=== PATIENT | female | born 1960 | race Caucasian/White ===

== ENCOUNTER 2017-09-06 14:14 | Observation (INO) ==
--- NOTE | 2017-09-06 14:42 | Emergency Department Note ---
Disposition Clinical Impression: Atrial fibrillation with RVR Disposition: Admitted As Inpatient Condition: Fair Referrals: Biju Chang MD [Primary Care Provider] - Forms: ED Satisfaction Letter Time of Disposition: 16:32 Arrhythmia/Palpitations HPI - General Chief Complaint: ED Arrhythmia/Palpitations Stated Complaint: Afib new Source: patient Mode of arrival: ambulatory Limitations: no limitations Nursing Notes Reviewed: Yes Vital Signs Reviewed: Yes - History of Present Illness HPI Narrative: 56-year-old female who has a remote history of breast cancer last treated 2010 this had problems with asthmatic bronchitis sinusitis for the last couple months. She was in the process of being evaluated by pulmonology went in for an office visit today was found to be in A. fib with RVR. Patient does not have any history of previous arrhythmia. States she has not had treatment of her breast cancer for several years. She states she did have a blood clot at the tip of her previous port but no DVTs or PEs. She said she had an echo done when she was getting chemotherapy several years ago but none recently. 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 Duration: constant Severity: moderate Context: occurred during rest Arrhythmia History: other (Chest pressure) Associated symptoms: Reports: chest pain, shortness of breath - Related Data Home Medications Medication Instructions Recorded Confirmed Anastrozole [Arimidex] 1 mg PO DAILY 09/02/16 09/02/16 Calcium Carb/Vitamin D3/Vit K1 1 each PO DAILY 09/02/16 09/02/16 [Calcium + D Soft Chewable Tab] Cholecalciferol (Vitamin D3) 2,000 unit PO DAILY 09/02/16 09/02/16 [Vitamin D3] Fluticasone Propionate Nasal 50 mcg NS DAILY 09/02/16 09/02/16 [Flonase] Furosemide [Lasix] 40 mg PO DAILY 09/02/16 09/02/16 Krill/[place]-3/Dha/Epa/Lipids 1 each PO DAILY 09/02/16 09/02/16 [Krill Oil 300 mg Softgel] Montelukast [Singulair] 10 mg PO DAILY 09/02/16 09/02/16 Omeprazole 20 mg PO DAILY 09/02/16 09/02/16 Potassium Chloride [Klor-Con 10 meq PO DAILY 09/02/16 09/02/16 Sprinkle] Valsartan [Diovan] 80 mg PO DAILY 09/02/16 09/02/16 Previous Rx's Medication Instructions Recorded Clindamycin [Cleocin] 300 mg PO Q8H #30 capsule 09/04/16 Lactobacillus [Culturelle] 1 each PO BID #10 cap.sprink 09/04/16 Loratadine [Claritin] 10 mg PO DAILY PRN #0 09/04/16 Allergies Allergy/AdvReac Type Severity Reaction Status Date / Time ampicillin Allergy Rash Verified 07/20/15 12:42 naproxen [From Naprosyn] Allergy Rash Verified 09/02/16 15:19 tape Allergy Blister Uncoded 07/20/15 12:42 All systems ED: reviewed and negative except as stated. Constitutional: Denies: fever, chills, weakness, weight change Eyes: Denies: eye pain, eye discharge, vision change ENT ED: Denies: ear pain, throat pain, dental pain, hearing loss, epistaxis, congestion, dysphagia Cardiovascular: Reports: chest pain (Pressure), palpitations, dyspnea on exertion. Denies: edema, syncope Respiratory: Denies: cough, dyspnea, wheezes, hemoptysis, stridor Gastrointestinal: Denies: abdominal pain, nausea, vomiting, diarrhea, constipation, hematemesis, melena, hematochezia Genitourinary: Denies: dysuria, frequency, hematuria, discharge Musculoskeletal: Denies: back pain, neck pain, arthralgia, myalgia Integumentary: Denies: rash, abrasion, lesions Neurological: Denies: headache, weakness, numbness, paresthesias, confusion, abnormal gait, vertigo Psychiatric: Denies: anxiety, depression, suicidal thoughts, homicidal thoughts , auditory hallucinations, visual hallucinations Endocrine: Denies: fatigue Hematological/Lymphatic: Denies: easy bleeding, easy bruising Allergic/Immunologic: Denies: facial swelling, urticaria Past Medical History - Past Medical History Medical history: Reports: arthritis, cancer, GERD, hypertension, other Psychiatric history: Reports: no psych history TUBE AND ROD STRAIGHTENER history: Reports: no TUBE AND ROD STRAIGHTENER history - Social History Smoking Status: Former smoker Smokeless Tobacco Status: No Alcohol use: Reports: none Drug use: Reports: none Physical Exam - General Limitations: no limitations General appearance: alert, in no apparent distress - Head Head exam: atraumatic, normocephalic, normal inspection - Eye Eye exam: Present: normal appearance, PERRL, EOMI - ENT ENT exam: normal exam, normal oropharynx, mucous membranes moist - Neck Neck exam: Present: normal inspection, full ROM, trachea midline - Chest Chest inspection: Present: normal inspection, symmetric chest wall rise - Respiratory Respiratory exam: Present: normal lung sounds bilaterally - Cardiovascular Cardiovascular exam: Present: tachycardia - Extremities Exam Extremities exam: Present: normal inspection, full ROM. Absent: tenderness, pedal edema - Expanded Lower Extremity Exam Neurovascular/Tendon exam: Absent: motor deficit, sensory deficit, tendon deficit Gait: observed and normal - Back Exam Back exam: Present: normal inspection, full ROM. Absent: tenderness - Neurological Exam Neurological exam: Present: alert, oriented X3 - Psychiatric Psychiatric exam: Present: normal affect, normal mood - Skin Skin exam: Present: warm, dry, intact, normal color Course - Reevaluation(s) Reevaluation #1: 56-year-old comes in with a rapid heartbeat and irregular. Found to be in A. fib with a rate of 160. She started on a Cardizem drip. She been intermittently in and out of sinus back to A. fib. We gave her shot of Lovenox. She will be admitted for further evaluation. Time: 16:31 - Consultations Consultation #1: Discussed with , admit. Time: 16:49 Vital Signs Temperature 98.8 F 09/06/17 14:17 Pulse Rate 98 09/06/17 14:17 Respiratory Rate 18 09/06/17 14:17 Blood Pressure 136/101 09/06/17 14:17 O2 Sat by Pulse Oximetry 98 09/06/17 14:17 Temperature 98.8 F 09/06/17 14:17 Pulse Rate 140 09/06/17 15:23 Respiratory Rate 18 09/06/17 15:23 Blood Pressure 141/79 09/06/17 15:23 O2 Sat by Pulse Oximetry 100 09/06/17 15:23 Oxygen Delivery Oxygen Delivery Room Air Arrhythmia/Palpitations - Lab Data Result diagrams: 09/06/17 14:22 09/06/17 14:22 Lab Results 09/06/17 09/06/17 09/06/17 Range/Units 14:22 14:22 14:22 WBC 11.0 (4.3-11.1) K/mcL RBC 5.40 H (3.82-4.97) M/mcL Hgb 16.4 H (11.5-15.4) g/dL Hct 48.8 H (35.3-44.9) % MCV 90.4 (83.0-100.0) fL MCH 30.4 (28.0-33.3) pg MCHC 33.6 (31.6-35.5) g/dL RDW 12.9 (11.5-14.5) % Plt Count 340 (140-400) K/mcL MPV 9.7 (9.4-12.4) fL Immature Gran % 0.4 (0-4) % Seg Neutrophils % 58.6 % Lymphocytes % 29.4 % Monocytes % 8.0 % Eosinophils % 2.9 % Basophils % 0.7 % Neutrophils # 6.5 (1.6-8.9) K/mcL Lymphocytes # 3.2 (0.6-4.6) K/mcL Monocytes # 0.9 (0.0-1.3) K/mcL Eosinophils # 0.3 (0.0-0.6) K/mcL Basophils # 0.1 (0.0-0.2) K/mcL PT 10.0 (9.4-12.1) Seconds INR 0.9 APTT 27.8 (26.0-36.0) Seconds D-Dimer 528 H (0-500) ng/mLFEU Sodium 140 (136-145) mEq/L Potassium 3.2 L (3.5-5.1) mEq/L Chloride 100 (98-107) mEq/L Carbon Dioxide 29 (23-29) mEq/L BUN 13 (6-20) mg/dL Creatinine 0.79 (0.60-1.20) mg/dL Est GFR ( Amer) > 60 (> 60) Est GFR (Non-Af Amer) > 60 (> 60) BUN/Creatinine Ratio 16 (6-26) Glucose 100 (70-105) mg/dL Calculated Osmolality 290 (280-300) Calcium 10.3 (8.6-10.3) mg/dL Troponin I < 0.03 (< 0.04) ng/mL TSH 2.715 (0.340-5.600) mcIU/mL Critical Care Time Critical Care Time: Yes Total Critical Care Time: 30 Attestation: The high probability of a clinically significant, sudden or life threatening deterioration of the [cardiovascular] system(s) required my full and direct attention, intervention and personal management. The aggregate critical care time was [30] minutes. This time is in addition to time spent performing reported procedures but includes the following: [x] Data Review and interpretation [x] Patient assessment and monitoring of vital signs [x] Documentation [x] Medication orders and management
[2017-09-06 15:15] LABS: Basophils # 0.1 K/mcL (0.0-0.2); Basophils % 0.7 %; Eosinophils # 0.3 K/mcL (0.0-0.6); Eosinophils % 2.9 %; Hematocrit 48.8 % (35.3-44.9); Hemoglobin 16.4 g/dL (11.5-15.4); Immature Granulocytes % 0.4 % (0-4); Lymphocytes # 3.2 K/mcL (0.6-4.6); Lymphocytes % 29.4 %; Mean Corpuscular HGB Conc 33.6 g/dL (31.6-35.5); Mean Corpuscular Hemoglobin 30.4 pg (28.0-33.3); Mean Corpuscular Volume 90.4 fL (83.0-100.0); Mean Platelet Volume 9.7 fL (9.4-12.4); Monocytes # 0.9 K/mcL (0.0-1.3); Neutrophils # 6.5 K/mcL (1.6-8.9); Platelet Count 340 K/mcL (140-400); Red Cell Distribution Width 12.9 % (11.5-14.5); Segmented Neutrophils % 58.6 %
[2017-09-06 15:25] LABS: INR 0.9
[2017-09-06 15:28] LABS: Activated Partial Thrombo Time 27.8 Seconds (26.0-36.0)
[2017-09-06 15:33] LABS: BUN/Creatinine Ratio 16 (6-26); Blood Urea Nitrogen 13 mg/dL (6-20); Calcium 10.3 mg/dL (8.6-10.3); Carbon Dioxide 29 mEq/L (23-29); Chloride 100 mEq/L (98-107); Glucose 100 mg/dL (70-105); Osmolality,Calculated 290 (280-300); Potassium 3.2 mEq/L (3.5-5.1); Sodium 140 mEq/L (136-145); Troponin I < 0.03 ng/mL (< 0.04); eGFR For African Americans > 60 (> 60); eGFR For Non-African Americans > 60 (> 60)
[2017-09-06 15:47] LABS: Thyroid Stimulating Hormone 2.715 mcIU/mL (0.340-5.600)
[2017-09-06] MEDS ORDERED: 0.9 % Sodium Chloride 1,000 ML ONE (16:30)
[2017-09-06] MEDS ORDERED: *HR* Enoxaparin 120 MG/0.8 ML SYRINGE SQ STA (16:30)
[2017-09-06] MEDS ORDERED: Naloxone 0.4 MG/ML INJ IVP PRN (17:38)
[2017-09-06] MEDS ORDERED: Acetaminophen 325 MG TABLET PO PRN (17:38)
[2017-09-06] MEDS ORDERED: Ibuprofen 800 MG TABLET PO PRN (17:39)
--- NOTE | 2017-09-06 17:49 | Internal Med History&Physical ---
Date of Encounter: 09/06/17 Time of Encounter: 17:15 Assessment and Plan (1) Atrial fibrillation with RVR Current visit: Yes Status: Acute New onset atrial fibrillation with RVR. Heart rate is already improving after patient was started on Cardizem drip. Will continue IV Cardizem drip and transition to oral Cardizem once heart rate remains controlled. We will get 2- D echocardiogram. Patient received anticoagulation with Lovenox in the ER. Presently her Chads 2 vasc score is 1. We will follow up on 2-D echocardiogram results and reassess. (2) Asthma Current visit: Yes Status: Chronic Patient being evaluated for asthma with pulmonology. Was taking albuterol 3-4 times a day on a scheduled basis. We will stop albuterol and place her on Xopenex as needed. Continue Flovent HFA. Qualifiers: Asthma severity: moderate Asthma persistence: persistent Asthma complication type: unspecified Qualified Code(s): J45.40 - Moderate persistent asthma, uncomplicated (3) Hypokalemia Current visit: Yes Status: Acute We will replete orally. (4) Hypertension Current visit: Yes Status: Chronic Uncontrolled. Resume home medications. Monitor blood pressure closely. Qualifiers: Hypertension type: essential hypertension Qualified Code(s): I10 - Essential (primary) hypertension Internal Medicine - H&P: HPI Chief complaint: Palpitations Admitted From: Emergency Dept Plans for Post Hospital Care: Home History of present illness: Ms. 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 She was being seen by her biochemical development engineer for evaluation of asthmatic bronchitis when she was found to have tachycardia. She reports that she was feeling fluttery when she woke up this morning. She denies any dizziness or lightheadedness. Denies any chest pain. She does have difficulty taking deep breaths and has chronic cough which seems to be improving recently. She has been taking albuterol as prescribed by her primary care provider every 6 hours on a scheduled basis. She is also on Flovent. Denies any nausea or vomiting. No hematemesis or melena. Past Med Surg Social Fam HX - Past Medical History Attestation: Yes The following information was validated with the patient. Source: patient Medical history: arthritis, cancer, GERD, hypertension, other Psychiatric history: no psych history - Social History Smoking Status: Former smoker Smokeless Tobacco Status: No Alcohol use: none Drug use: none - Family History Mother Living Status: Hx Family Cardiac Disorders: Yes (hypertension) Hx Family Cancer: Yes (brain, pancreatic, lung, female ?) Internal Medicine - H&P: Meds Anastrozole [Arimidex] 1 mg PO QPM 09/02/16 [History] Calcium Carb/Vitamin D3/Vit K1 [Calcium + D Soft Chewable Tab] 1 each PO DAILY 09/02/16 [History] Cholecalciferol (Vitamin D3) [Vitamin D3] 2,000 unit PO DAILY 09/02/16 [History] Fluticasone Propionate Nasal [Flonase] 50 mcg NS DAILY 09/02/16 [History] Furosemide [Lasix] 40 mg PO DAILY 09/02/16 [History] Krill/[place]-3/Dha/Epa/Lipids [Krill Oil 300 mg Softgel] 1 each PO DAILY [History] Montelukast [Singulair] 10 mg PO QPM 09/02/16 [History] Omeprazole 20 mg PO QAM 09/02/16 [History] Potassium Chloride [Klor-Con Sprinkle] 10 meq PO QAM 09/02/16 [History] Albuterol Sulfate [Proair Hfa] 2 puff IH Q4H PRN 09/06/17 [History] Fluticasone Propionate [Flovent Hfa] 1 puff IH BID 09/06/17 [History] Ibuprofen [Motrin] 800 mg PO Q8H PRN 09/06/17 [History] Lactobacillus [Culturelle] 1 each PO DAILY 09/06/17 [History] Loratadine [Claritin] 10 mg PO DAILY 09/06/17 [History] Valsartan/Hydrochlorothiazide [Diovan Hct 80-12.5 mg Tablet] 1 each PO QAM 09/06 [History] 3 Allergy/AdvReac Type Severity Reaction Status Date / Time ampicillin Allergy Rash Verified 07/20/15 12:42 naproxen [From Naprosyn] Allergy Rash Verified 09/02/16 15:19 tape Allergy Blister Uncoded 07/20/15 12:42 All Systems PM: A 10-system review of systems was performed and is negative for pertinent findings except as documented above in the HPI. - Constitutional Constitutional: no chills, no fever(s), no night sweats - EENT Eyes: no change in vision, no discharge, no pain, no photophobia Ears: no ear discharge, no ear pain, no tinnitus Nose, mouth and throat: no dysphagia, no nasal discharge, no neck pain, no sore throat - Cardiovascular Cardiovascular ROS IM: palpitations, no chest pain, no diaphoresis, no dyspnea, no lightheadedness, no syncope - Respiratory Respiratory: no cough, no dyspnea, no wheezing, no excessive phlegm production - Gastrointestinal Gastrointestinal: no abdominal pain, no diarrhea, no hematemesis, no hematochezia, no melena, no nausea, no vomiting - Genitourinary Genitourinary: no change in urinary stream, no dysuria, no flank pain, no hematuria - Musculoskeletal Musculoskeletal ROS IM: no numbness, no tingling - Integumentary Integumentary IM: no rash, no unusual bruising - Neurological Neurological ROS: no confusion, no convulsions, no focal weakness, no numbness, no tingling, no tremor(s) - Hematologic/Lymphatic Hematologic/Lymphatic: no easy bruising - Constitutional Vitals: Temp Pulse Resp BP Pulse Ox 98.8 F 140 18 141/79 100 09/06/17 14:17 09/06/17 15:23 09/06/17 15:23 09/06/17 15:23 09/06/17 15:23 General appearance: Present: cooperative, mild distress, A&O X 3, obese, answers questions appropriately - Neck Neck exam general surgery: Present: supple, trachea midline. Absent: lymphadenopathy - Respiratory Respiratory exam: Present: CTAB. Absent: accessory muscle use, rales, rhonchi, wheezes - Cardiovascular Cardiovascular exam: Present: RRR, +S1, +S2. Absent: diastolic murmur, gallop, rubs, systolic murmur - GI/Abdominal GI/Abdominal exam: Present: normal bowel sounds, soft, no peritoneal signs. Absent: distended, tenderness - Extremities Exam Extremities exam: Present: warm, radial pulses palpable and symmetrical. Absent : calf tenderness, cyanotic, pedal edema - Neurological Exam Neurological exam: Present: CN II-XII intact, oriented X3, no focal deficits. Absent: facial droop, speech deficit - Skin Skin exam: Present: dry, intact Internal Med - H&P Results - Labs CBC & Chem 7: 09/06/17 14:22 09/06/17 14:22 - EKG Data -: EKG Interpreted by Myself - EKG Data EKG comments: 09/06/17 17:55 A. fib with RVR - Impressions Impressions Chest X-Ray 09/06/17 14:22 IMPRESSION: Negative chest. D/ / Shanelle Terry MD / Shanelle Terry MD Interpreting Provider: Shanelle Terry MD
[2017-09-06] MEDS ORDERED: Levalbuterol Neb 0.63 MG/3 ML IH PRN (17:58)
[2017-09-06] MEDS ORDERED: Anastrozole 1 MG TABLET PO SCH (18:00)
[2017-09-06] MEDS: Beclomethasone 80mcg MDI IH SCH (19:50)
[2017-09-06] MEDS: *HR* Heparin 5,000 UNIT/ML VIAL SQ SCH (20:26)
[2017-09-07] MEDS: *HR* Heparin 5,000 UNIT/ML VIAL SQ SCH (05:05)
[2017-09-07 06:54] LABS: Basophils # 0.1 K/mcL (0.0-0.2); Basophils % 0.9 %; Eosinophils # 0.3 K/mcL (0.0-0.6); Eosinophils % 4.9 %; Hematocrit 41.2 % (35.3-44.9); Immature Granulocytes % 0.3 % (0-4); Lymphocytes # 2.4 K/mcL (0.6-4.6); Lymphocytes % 36.8 %; Mean Corpuscular HGB Conc 33.3 g/dL (31.6-35.5); Mean Corpuscular Hemoglobin 30.6 pg (28.0-33.3); Mean Platelet Volume 9.9 fL (9.4-12.4); Monocytes # 0.6 K/mcL (0.0-1.3); Monocytes % 9.4 %; Neutrophils # 3.1 K/mcL (1.6-8.9); Platelet Count 266 K/mcL (140-400); Red Blood Count 4.48 M/mcL (3.82-4.97); Red Cell Distribution Width 13.2 % (11.5-14.5); Segmented Neutrophils % 47.7 %
[2017-09-07 06:56] LABS: Hemoglobin 13.7 g/dL (11.5-15.4)
[2017-09-07 07:16] LABS: BUN/Creatinine Ratio 18 (6-26); Blood Urea Nitrogen 12 mg/dL (6-20); Calcium 8.9 mg/dL (8.6-10.3); Carbon Dioxide 26 mEq/L (23-29); Chloride 107 mEq/L (98-107); Glucose 101 mg/dL (70-105); Osmolality,Calculated 290 (280-300); Potassium 3.7 mEq/L (3.5-5.1); Sodium 140 mEq/L (136-145); eGFR For African Americans > 60 (> 60); eGFR For Non-African Americans > 60 (> 60)
[2017-09-07] MEDS ORDERED: Furosemide 40 MG TABLET PO SCH (09:00)
[2017-09-07] MEDS ORDERED: Valsartan 80 MG TABLET PO SCH (09:00)
[2017-09-07] MEDS ORDERED: Loratadine 10 MG TABLET PO SCH (09:00)
[2017-09-07] MEDS ORDERED: HYDROCHLOROTHIAZIDE PO SCH (09:00)
[2017-09-07] MEDS ORDERED: Aspirin Enteric Coated 81 MG Tablet PO SCH (09:00)
[2017-09-07] MEDS ORDERED: hydroCHLOROthiazide 25 MG TABLET PO SCH (09:00)
[2017-09-07] MEDS ORDERED: Lactobacillus 1 EACH CAP.SPRINK PO SCH (09:00)
[2017-09-07] MEDS ORDERED: VALSARTAN PO SCH (09:00)
[2017-09-07] MEDS ORDERED: Fluticasone Propionate Nasal 50 MCG/SPRAY BOTTLE NS SCH (09:00)
--- NOTE | 2017-09-07 09:53 | Internal Med Progress Note ---
Date of Encounter: 09/07/17 Time of Encounter: 09:40 - Subjective Interval history: Interval History: Rate controlled on Cardizem drip over night Drip d/c'd and PO Cardizem started On appropriate A/C with aspirin Assessment and Plan (1) Atrial fibrillation with RVR Current visit: Yes Status: Acute New onset atrial fibrillation with RVR. Heart rate is already improving after patient was started on Cardizem drip. Will continue IV Cardizem drip and transition to oral Cardizem once heart rate remains controlled. We will get 2- D echocardiogram. Patient received anticoagulation with Lovenox in the ER. Presently her Chads 2 vasc score is 1. We will follow up on 2-D echocardiogram results and reassess. Recheck Mag and K+ (2) Asthma Current visit: Yes Status: Chronic Patient being evaluated for asthma with pulmonology. Was taking albuterol 3-4 times a day on a scheduled basis. We will stop albuterol and place her on Xopenex as needed. Continue Flovent HFA. Qualifiers: Asthma severity: moderate Asthma persistence: persistent Asthma complication type: unspecified Qualified Code(s): J45.40 - Moderate persistent asthma, uncomplicated (3) Hypokalemia Current visit: Yes Status: Acute We will replete orally. (4) Hypertension Current visit: Yes Status: Chronic Uncontrolled. Resume home medications. Monitor blood pressure closely. Qualifiers: Hypertension type: essential hypertension Qualified Code(s): I10 - Essential (primary) hypertension - Constitutional Vitals: Temp Pulse Resp BP Pulse Ox 98.2 F 71 16 130/85 97 09/07/17 06:56 09/07/17 06:56 09/07/17 06:56 09/07/17 06:56 09/07/17 06:56 General appearance: Present: cooperative, mild distress, A&O X 3, obese, answers questions appropriately - Head Head exam: Present: atraumatic, normocephalic - Eye Eye exam: Present: EOMI, PERRL, conjuntiva pink, sclera anicteric Pupils: Present: PERRL - Neck Neck exam general surgery: Present: supple, trachea midline. Absent: lymphadenopathy - Respiratory Respiratory exam: Present: CTAB. Absent: accessory muscle use, rales, rhonchi, wheezes - Cardiovascular Cardiovascular exam: Present: RRR, +S1, +S2. Absent: diastolic murmur, gallop, rubs, systolic murmur - GI/Abdominal GI/Abdominal exam: Present: normal bowel sounds, soft, no peritoneal signs. Absent: distended, tenderness - Extremities Exam Extremities exam: Present: warm, radial pulses palpable and symmetrical. Absent : calf tenderness, cyanotic, pedal edema - Neurological Exam Neurological exam: Present: CN II-XII intact, oriented X3, no focal deficits. Absent: pronater drift, facial droop, speech deficit - Skin Skin exam: Present: dry, intact Internal Medicine: Result - Labs CBC & Chem 7: 09/07/17 06:26 09/07/17 06:26 Labs: Short CBC 09/07/17 Range/Units 06:26 WBC 6.4 (4.3-11.1) K/mcL Hgb 13.7 D (11.5-15.4) g/dL Hct 41.2 (35.3-44.9) % Plt Count 266 (140-400) K/mcL Neutrophils # 3.1 (1.6-8.9) K/mcL BMP 09/07/17 06:26 Sodium 140 Potassium 3.7 Chloride 107 Carbon Dioxide 26 BUN 12 Creatinine 0.67 Glucose 101 Calcium 8.9 - ABG Interpretation ABG results: PT/INR, D-dimer PT 10.0 Seconds (9.4-12.1) 09/06/17 14:22 D-Dimer 528 ng/mLFEU (0-500) H 09/06/17 14:22 Consult Discharge Plan - Plan Referrals: Biju Chang MD [Primary Care Provider] - (web request sent on 09/07/17)
[2017-09-07] MEDS: Beclomethasone 80mcg MDI IH SCH (10:42)
[2017-09-07] MEDS ORDERED: Diltiazem CD (24hr) 120 MG CAPSULE PO SCH (12:45)
--- NOTE | 2017-09-07 16:10 | Discharge Summary ---
Date of Encounter: 09/07/17 Time of Encounter: 16:05 - Discharge Diagnosis (1) Atrial fibrillation with RVR Priority: Primary Status: Acute Comments: RAte and rhythm controlled and tolerating oral Cardizem. Hemodynamically stable. F/u with cardiology was arranged prior to discharge. Code(s): I48.91 - Unspecified atrial fibrillation (2) Asthma Priority: Secondary Status: Chronic Comments: Controlled with home medications. Qualifiers: Asthma severity: moderate Asthma persistence: persistent Asthma complication type: unspecified Qualified Code(s): J45.40 - Moderate persistent asthma, uncomplicated (3) Hypertension Priority: Secondary Status: Chronic Comments: Controlled with home medications. Qualifiers: Hypertension type: essential hypertension Qualified Code(s): I10 - Essential (primary) hypertension Hospital course: Hospital course: From the H&P: "Ms. 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 She was being seen by her disability representative for evaluation of asthmatic bronchitis when she was found to have tachycardia. She reports that she was feeling fluttery when she woke up this morning. She denies any dizziness or lightheadedness. Denies any chest pain. She does have difficulty taking deep breaths and has chronic cough which seems to be improving recently. She has been taking albuterol as prescribed by her primary care provider every 6 hours on a scheduled basis. She is also on Flovent. Denies any nausea or vomiting. No hematemesis or melena". In the ER she was found to be in A-Fib with a rapid rentricular rate and was started on a cardizem drip. She converted to a NSR and the Cardizem drip was discontinued and she was transitioned to Cardizem-CD 120 mg once daily. She remained rate and rhythm controlled throughout the next day. I spoke with cardiology and since she is stable and tollerating oral cardizem well she can follow up as an OP after discharge and no consult is required. She did not experience chest pain and her initial sob resolved when rate controlled. An echocardiogram was done and did not show any significant structural concerns. She did have mild diastolic dysfunction but her LVEF was normal. She was discharge to home in stable condition. Discharge diagnoses: (1) Atrial fibrillation with RVR- now resolved and in NSR (2) Asthma (3) Hypokalemia (4) Hypertension Discharge discussed with: patient, family Time spent discussing smoking cessation with patient: more than 10 minutes - Time Spent with Patient Total time spent providing and/or coordinating discharge services: Greater than 30 minutes - Discharge Medications Prescriptions: Aspirin Enteric Coated [Aspirin EC] 81 mg PO DAILY 30 Days #30 tablet. Diltiazem CD (24hr) [Cardizem CD] 120 mg PO DAILY 30 Days #30 cap.er.24h Home Medications: Anastrozole [Arimidex] 1 mg PO QPM 09/02/16 [History] Calcium Carb/Vitamin D3/Vit K1 [Calcium + D Soft Chewable Tab] 1 each PO DAILY 09/02/16 [History] Cholecalciferol (Vitamin D3) [Vitamin D3] 2,000 unit PO DAILY 09/02/16 [History] Fluticasone Propionate Nasal [Flonase] 50 mcg NS DAILY 09/02/16 [History] Furosemide [Lasix] 40 mg PO DAILY 09/02/16 [History] Krill/[place]-3/Dha/Epa/Lipids [Krill Oil 300 mg Softgel] 1 each PO DAILY [History] Montelukast [Singulair] 10 mg PO QPM 09/02/16 [History] Omeprazole 20 mg PO QAM 09/02/16 [History] Potassium Chloride [Klor-Con Sprinkle] 10 meq PO QAM 09/02/16 [History] Albuterol Sulfate [Proair Hfa] 2 puff IH Q4H PRN 09/06/17 [History] Fluticasone Propionate [Flovent Hfa] 1 puff IH BID 09/06/17 [History] Ibuprofen [Motrin] 800 mg PO Q8H PRN 09/06/17 [History] Lactobacillus [Culturelle] 1 each PO DAILY 09/06/17 [History] Loratadine [Claritin] 10 mg PO DAILY 09/06/17 [History] Valsartan/Hydrochlorothiazide [Diovan Hct 80-12.5 mg Tablet] 1 each PO QAM 09/06 [History] Aspirin Enteric Coated [Aspirin EC] 81 mg PO DAILY 30 Days #30 tablet. [Rx] Diltiazem CD (24hr) [Cardizem CD] 120 mg PO DAILY 30 Days #30 cap.er.24h [Rx] Allergies/Adverse Reactions: 3 Allergy/AdvReac Type Severity Reaction Status Date / Time ampicillin Allergy Rash Verified 07/20/15 12:42 naproxen [From Naprosyn] Allergy Rash Verified 09/02/16 15:19 tape Allergy Blister Uncoded 07/20/15 12:42 Date of admission: 09/06/17 17:35 Primary care physician: Biju Chang MD - Constitutional Vitals: Temp Pulse Resp BP Pulse Ox 98.3 F 84 16 153/97 96 09/07/17 11:54 09/07/17 11:54 09/07/17 11:54 09/07/17 11:54 09/07/17 11:54 General appearance: Present: cooperative, mild distress, A&O X 3, obese, answers questions appropriately - Patient Status Disposition: Home, Self-Care Condition: Fair - Discharge Instructions Instructions: Diltiazem (By mouth), Atrial Fibrillation (DC), Chronic Hypertension (DC) Follow Up With: Biju Chang MD [Primary Care Provider] - (web request sent on 09/07/17)
[2017-09-07 16:26] VITALS: BP 95/67
--- NOTE | 2017-09-07 19:50 | Electrocardiograph Report ---
[place] [id number] Test Date: 2017-09-06 Pat Name: Freda Solano Department: 104 Room: 2A14 Gender: F Office Support Specialist: ARIANNA : 1960 Requested By: Bev Lazar Order Number: [id number] Reading MD: Sam Victor MD Measurements Intervals [place] Rate: 161 P: [place]: 0 QRS: 29 QRSD: 106 T: -20 QT: 282 QTc: 371 Interpretive Statements ATRIAL FIBRILLATION WITH RAPID VENTRICULAR RESPONSE Electronically Signed On 09-07-2017 19:48:36 EDT by Sam Victor MD
[2017-09-08] MEDS ORDERED: Diltiazem CD (24hr) 120 MG CAPSULE PO SCH (09:00)
== END 2017-09-07 17:09 | disposition home or self-care (01) ==
LOC: EMEROO 14:14 → 2ANU 14:14
PROVIDERS: ADMIT Internal Medicine; ATTEND Internal Medicine

== ENCOUNTER 2017-11-15 09:12 | Inpatient (IN) ==
[2017-11-15] MEDS ORDERED: Naloxone 0.4 MG/ML INJ IVP PRN (11:51)
[2017-11-15] MEDS ORDERED: Ibuprofen 800 MG TABLET PO PRN (11:54)
--- NOTE | 2017-11-15 11:57 | History & Physical Report ---
Date of Encounter: 11/15/17 Time of Encounter: 11:30 24 Hour HP Update - Instructions Instructions: If the History and Physical is less than 30 days old and was completed prior to A.M. admission and or procedure and has NOT been updated on calendar day of procedure please complete this update prior to performing procedure. - Update Patient reports changes in Medical Condition: No Changes in examination, assessment, or condition: No Changes in Medication: No
--- NOTE | 2017-11-15 12:07 | Event Note ---
Date of Encounter: 11/15/17 Time of Encounter: 11:30 - Cardiology Event Note 57-year-old female last seen by Dr. Edgard Hidalgo 11/08/2017 directly admitted for paroxysmal atrial fibrillation and antiarrhythmic initiation of Rythmol 150 mg by mouth every 8 hours. Patient denies any new concerns or complaints. Currently denies any chest pain, shortness of breath, palpitations. Denies any active bleeding or blood loss. Reports on aspirin only. Patient reports no interest in starting Coumadin at this time due to pending planned surgery in December regarding her rest cancer and lymphedema. ECG today shows sinus rhythm heart rate 73 with current QRS 88 ms. Takes Cardizem CD 180 mg by mouth every 12 hours, had doses morning. Per review and discussion Dr. Edgard Hidalgo plans to decrease calcium channel terrie and possibly stop if able. Will decrease to Cardizem CD 100 mg by mouth daily. Possible DC to home if remains sinus rhythm on Rythmol. She has been aware of plan and verbalized understanding. All questions answered. See note from 11/08/17 for H&P scanned on chart.
[2017-11-15] MEDS: Anastrozole 1 MG TABLET PO SCH (18:57)
[2017-11-16] MEDS: Lactobacillus 1 EACH CAP.SPRINK PO SCH (07:52)
[2017-11-16] MEDS: Fluticasone Propionate Nasal 50 MCG/SPRAY BOTTLE NS SCH (07:52)
[2017-11-16] MEDS: Furosemide 40 MG TABLET PO SCH (07:52)
[2017-11-16] MEDS: Aspirin Enteric Coated 81 MG Tablet PO SCH (07:52)
[2017-11-16] MEDS: hydroCHLOROthiazide 25 MG TABLET PO SCH (07:52)
[2017-11-16] MEDS: Cholecalciferol (D-3) 1,000 UNIT TABLET PO SCH (07:53)
[2017-11-16] MEDS: Loratadine 10 MG TABLET PO SCH (07:53)
[2017-11-16] MEDS: Valsartan 80 MG TABLET PO SCH (07:53)
[2017-11-16] MEDS ORDERED: [UNRECOGNIZED DRUG - OTHER] PO SCH (09:00)
[2017-11-16] MEDS ORDERED: EPA PO SCH (09:00)
[2017-11-16] MEDS ORDERED: LIPIDS PO SCH (09:00)
[2017-11-16] MEDS ORDERED: DHA PO SCH (09:00)
[2017-11-16] MEDS ORDERED: KRILL PO SCH (09:00)
[2017-11-16] MEDS ORDERED: OMEGA PO SCH (09:00)
[2017-11-16] MEDS ORDERED: Diltiazem CD (24hr) 180 MG CAPSULE PO SCH (09:00)
--- NOTE | 2017-11-16 11:43 | Cardiology Progress Note ---
Date of Encounter: 11/16/17 Time of Encounter: 11:40 Assessment and Plan (1) PAF (paroxysmal atrial fibrillation) Current Visit: Yes Status: Chronic Admitted for antiarrhythmic initiation of Rythmol 150 mg PO [id number]. TTE 08/2017 EF 60%, mildly dilated LA. Patient denies any new complaints. Her only concern is she is frequently on Clindamycin and is concerned about interactions with Rythmol. Will discuss with pharmacist. On aspirin only. Patient reports no interest in starting Coumadin at this time due to pending planned surgery in December regarding her breast cancer and lymphedema. Baseline ECG 11/15/17 SR, HR 73, QRS 88 ms. EKG 11/16/17 SR, HR 72, QRS 90ms. QRS remains stable. Pt has received 3 doses of Rythmol. Daily EKGs to monitor QRS. Needs monitored for minimum of 5 doses. Home medication included PO Cardizem CD 180 mg BID, decreased to Cardizem CD 180 mg by mouth daily. Will further decrease to 120mg daily. Possible DC to home tomorrow if remains sinus rhythm on Rythmol. (2) Morbid obesity Current Visit: Yes Status: Acute Lifestyle modification necessary. Discussion w patient/family: The assessment and plan as outlined above was discussed with the patient and/or family members who expressed understanding and agreement. All questions were answered. Thank you for involving us in the care of your patient. Please call with any questions. I will discuss all the above with Dr. Chopra and make changes as necessary. Subjective Principal diagnosis: PAF Interval history: Pt remains in SR, denies acute complaints this AM. Objective Vital Signs, Last 4 Hours Temp Pulse Resp BP Pulse Ox 11/16/17 11:16 98.4 F 77 16 127/77 98 11/16/17 10:12 83 18 11/16/17 08:02 79 11/16/17 08:00 80 20 Vital Signs Temp Pulse Resp BP Pulse Ox 11/16/17 11:16 98.4 F 77 16 127/77 98 11/16/17 10:12 83 18 11/16/17 08:02 79 11/16/17 08:00 80 20 11/16/17 06:36 98.1 F 70 18 130/80 98 11/16/17 03:01 97.8 F 71 16 125/73 95 11/15/17 23:43 98.0 F 73 18 112/60 97 11/15/17 19:20 98.2 F 74 16 147/86 96 11/15/17 18:53 79 20 100 11/15/17 16:26 73 11/15/17 16:21 98.4 F 75 20 134/92 99 11/15/17 14:27 82 20 98 11/15/17 13:19 83 20 136/83 97 11/15/17 12:32 86 11/15/17 12:08 98 Intake and Output 11/15/17 11/16/17 11/16/17 23:59 07:59 15:59 Intake Total 960 / 960 600 / 600 960 / 960 Output Total 500 / 500 800 / 800 850 / 850 Balance 460 / 460 -200 / -200 110 / 110 Intake: Oral 960 / 960 600 / 600 960 / 960 Output: Urine 500 / 500 800 / 800 850 / 850 Other: Meal Dinner Breakfast Percent of Meal Consumed 100% 90% Weight 108.1 kg Patient Weight 11/16/17 23:59 Weight 108.1 kg General: Conversant, No Apparent Distress HEENT: Atraumatic, Normocephaly, Mucus Membranes Moist Neck: No JVD, Normal carotid pulses Cardiac: Reg Rate and Rhythm, Normal S1 and S2, No Murmur Lungs: Normal Breath Sounds, No Wheeze, Rales, Rhonchi Neuro: Alert and responsive, No focal deficits noted Abdomen: Soft, Non-Tender Skin: No rashes noted on visualized skin Musculoskeletal: No Chest Wall Tenderness Extremities: Other (mild LE edema) Results - EKG Interpretation EKG results cardiology: other (12 hr tele AVG HR 72, SR, no significant pauses or arrhythmias noted.) - VTE Reasons for not Prescribing Prophylaxis: Treatment not Indicated - Low risk for VTE Consult Discharge Plan - Plan Referrals: Juli Dougherty CNP [Advanced Practice Nurse] - 11/25/17 1:00 pm Edgard Hidalgo MD [Partnered Physician] - (office will call patient at home with follow up appointment)
--- NOTE | 2017-11-16 12:04 | Event Note ---
Date of Encounter: 11/16/17 Time of Encounter: 12:03 - Cardiology Event Note Discussed with Dustin from pharmacy. No interaction between Rythmol and Clindamycin. Pt made aware.
--- NOTE | 2017-11-16 14:41 | Electrocardiograph Report ---
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
--- NOTE | 2017-11-16 15:02 | Electrocardiograph Report ---
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
[2017-11-16] MEDS: Anastrozole 1 MG TABLET PO SCH (17:56)
[2017-11-17 07:31] VITALS: BP 134/95
[2017-11-17] MEDS: Aspirin Enteric Coated 81 MG Tablet PO SCH (08:17)
[2017-11-17] MEDS: Cholecalciferol (D-3) 1,000 UNIT TABLET PO SCH (08:17)
[2017-11-17] MEDS: hydroCHLOROthiazide 25 MG TABLET PO SCH (08:17)
[2017-11-17] MEDS: Valsartan 80 MG TABLET PO SCH (08:17)
[2017-11-17] MEDS: Loratadine 10 MG TABLET PO SCH (08:17)
[2017-11-17] MEDS: Lactobacillus 1 EACH CAP.SPRINK PO SCH (08:17)
[2017-11-17] MEDS: Furosemide 40 MG TABLET PO SCH (08:17)
[2017-11-17] MEDS: Fluticasone Propionate Nasal 50 MCG/SPRAY BOTTLE NS SCH (08:18)
[2017-11-17] MEDS ORDERED: Diltiazem CD (24hr) 120 MG CAPSULE PO SCH (09:00)
--- NOTE | 2017-11-17 09:05 | Discharge Summary ---
Orders not resulted at time of discharge: Pending orders 11/16/17 06:00 ECG 12 lead ECG [ECG] AM 0600 11/17/17 06:00 ECG 12 lead ECG [ECG] AM 0600 EKG [ECG 12 lead ECG] [ECG] AM 0600 11/18/17 06:00 ECG 12 lead ECG [ECG] AM 0600 Date of Encounter: 11/17/17 Time of Encounter: 09:00 - Discharge Diagnosis (1) PAF (paroxysmal atrial fibrillation) Priority: Primary Status: Chronic Comments: Directly admitted for antiarrhythmic initiation for paroxysmal atrial fibrillation. - Hospital Course Hospital course: Ms. Solano is a 57 year old female directly admitted for antiarrhythmic initiation of Rythmol. Patient is status post 6 doses of Rythmol 150 mg by mouth every 8 hours and remains sinus rhythm. Current ECG shows sinus rhythm in the 60s with QRS 102 ms. Has remained sinus rhythm during her entire hospital stay. Cardizem CD per discussion with Dr. Edgard Hidalgo decreased from 180 mg by mouth twice a day down to 120 mg by mouth daily. Patient remains not on anticoagulation other than aspirin. Patient aware of increased stroke risk. Prepping for discharge home today in stable condition. All questions answered. - Time Spent with Patient Total time spent providing and/or coordinating discharge services: Less than 30 minutes - Discharge Medications Prescriptions: Diltiazem CD (24hr) [Cardizem CD] 120 mg PO DAILY #30 cap.er.24h Propafenone [Rhythmol] 150 mg PO Q8H #90 tablet Home Medications: Anastrozole [Arimidex] 1 mg PO QPM 09/02/16 [History] Calcium Carb/Vitamin D3/Vit K1 [Calcium + D Soft Chewable Tab] 1 tab PO DAILY [History] Cholecalciferol (Vitamin D3) [Vitamin D3] 2,000 unit PO DAILY 09/02/16 [History] Fluticasone Propionate Nasal [Flonase] 50 mcg NS DAILY 09/02/16 [History] Furosemide [Lasix] 40 mg PO DAILY 09/02/16 [History] Krill/Liberal-3/Dha/Epa/Lipids [Krill Oil 300 mg Softgel] 1 each PO DAILY [History] Montelukast [Singulair] 10 mg PO QPM 09/02/16 [History] Omeprazole 20 mg PO QAM 09/02/16 [History] Potassium Chloride [Klor-Con Sprinkle] 20 meq PO QAM 09/02/16 [History] Ibuprofen [Motrin] 800 mg PO Q8H PRN 09/06/17 [History] Lactobacillus [Culturelle] 1 each PO DAILY 09/06/17 [History] Loratadine [Claritin] 10 mg PO DAILY 09/06/17 [History] Valsartan/Hydrochlorothiazide [Diovan Hct 80-12.5 mg Tablet] 1 tab PO QAM [History] Aspirin Enteric Coated [Aspirin EC] 81 mg PO DAILY 30 Days #30 tablet.dr [Rx] Clindamycin HCl 300 mg PO TID 11/16/17 [History] Diltiazem CD (24hr) [Cardizem CD] 120 mg PO DAILY #30 cap.er.24h 11/17/17 [Rx] Propafenone [Rhythmol] 150 mg PO Q8H #90 tablet 11/17/17 [Rx] Allergies/Adverse Reactions: 3 Allergy/AdvReac Type Severity Reaction Status Date / Time ampicillin Allergy Rash Verified 11/16/17 08:53 naproxen [From Naprosyn] Allergy Rash Verified 11/16/17 08:53 tape Allergy Blister Uncoded 11/16/17 08:53 Date of admission: 11/15/17 09:53 Primary care physician: Biju Chang MD Consults: 11/15/17 11:14 Consult to Invasive Line Access Team [CONS] Stat Reason for Consult: ultrasound guided line placement per patient request/ history. Line Type: EPIV Discharging clinician: Evgeny Vazquez Anticipated date of discharge: 11/17/17 Physical Examination Vital Signs, Last 4 Hours Temp Pulse Resp BP Pulse Ox 11/17/17 07:30 97.9 F 76 18 134/95 99 General: Conversant, No Apparent Distress HEENT: Atraumatic, Normocephaly, Mucus Membranes Moist Neck: No JVD, Normal carotid pulses Cardiac: Reg Rate and Rhythm, Normal S1 and S2, No Murmur Lungs: Normal Breath Sounds, No Wheeze, Rales, Rhonchi Neuro: Alert and responsive, No focal deficits noted Abdomen: Soft, Non-Tender Skin: No rashes noted on visualized skin Musculoskeletal: No Chest Wall Tenderness Extremities: No Clubbing, No Cyanosis, No Edema, Normal Pulses - Patient Status Disposition: Home, Self-Care Condition: Good Overall status at discharge: patient is back to baseline - Discharge Instructions Follow Up With: Juli Dougherty CNP [Advanced Practice Nurse] - 11/25/17 1:00 pm Edgard Hidalgo MD [Partnered Physician] - (office will call patient at home with follow up appointment) - Diet and Activity Diet: advance to your usual diet - VTE Reasons for not Prescribing Prophylaxis: Treatment not Indicated - Low risk for VTE
--- NOTE | 2017-11-20 10:46 | Electrocardiograph Report ---
[address] [address] Test Date: 2017-11-17 Pat Name: Freda Solano Department: 110 Room: 15 Gender: F Slot Key Person: : 1960 Requested By: Evgeny Vazquez Order Number: [id number] Reading MD: Dex Ch Measurements Intervals [place] Rate: 67 P: 53 PA: 180 QRS: 28 QRSD: 102 T: 31 QT: 432 QTc: 448 Interpretive Statements SINUS RHYTHM Electronically Signed On 11-20-2017 10:45:05 EDT by Dex Ch
== END 2017-11-17 10:22 | disposition home or self-care (01) | DRG 309 ==
LOC: 2NNU 09:53
PROVIDERS: ADMIT Internal Medicine Clinical Cardiac Electrophysiology; ATTEND Internal Medicine Clinical Cardiac Electrophysiology